=== PATIENT | female | born 1980 | race Two or more races ===

== ENCOUNTER 2016-07-26 09:14 | Emergency (ER) | payer OTHER ==
[~2016-07-26 09:14] MED LIST: DIPH25CA58 PO; HYDR1TAB12 PO; PROM25SU32 RC
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
[2016-07-26 13:10] VITALS: BP 121/74
== END 2016-07-26 13:10 | disposition home or self-care (01) ==
LOC: ER 09:14
DX: S16.1XXA Strain of muscle, fascia and tendon at neck level, initial encounter (principal); S20.219A Contusion of unspecified front wall of thorax, initial encounter; S30.1XXA Contusion of abdominal wall, initial encounter; V89.2XXA Person injured in unspecified motor-vehicle accident, traffic, initial encounter; Y93.89 Activity, other specified; Y99.8 Other external cause status; Y92.89 Other specified places as the place of occurrence of the external cause
CPT/HCPCS: 71020; 72040; 72170; 73562; 73630; 81025; 84703; 99284-25

== ENCOUNTER 2016-08-01 08:37 | Emergency (ER) | payer OTHER ==
[~2016-08-01] VITALS: Ht 144.8 cm; Wt 49.9 kg
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
[2016-08-01] MEDS ORDERED: IOHEXOL 300 MG/ML 75 ML VIAL. IV ONE (09:30)
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
[2016-08-01] MEDS ORDERED: IV NORMAL SALINE 1,000ML 1,000 ML IV ONE (10:45)
[2016-08-01 11:26] VITALS: BP 106/59
== END 2016-08-01 11:26 | disposition home or self-care (01) ==
LOC: ER 08:37
DX: S90.32XA Contusion of left foot, initial encounter (principal); S80.01XA Contusion of right knee, initial encounter; R07.89 Other chest pain; M54.6 Pain in thoracic spine; V49.60XA Unspecified car occupant injured in collision with unspecified motor vehicles in traffic accident, initial encounter; Y93.I9 Activity, other involving external motion; Y92.410 Unspecified street and highway as the place of occurrence of the external cause; Y99.8 Other external cause status
CPT/HCPCS: 71260; 73630; 74177; 96360; 99284; Q9967; J7030